=== PATIENT | male | born 2000 | race African-American/Black ===

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

== ENCOUNTER 2024-08-20 17:19 | Inpatient (IN) | payer BC, MEDICAID ==
[~2024-08-20] VITALS: Ht 182.9 cm; Wt 145.1 kg
[2024-08-20 18:01] LABS: BASOPHILS % 0.9 % (0.0-2.0); EOSINOPHILS % 1.4 % (0.0-5.0); HEMATOCRIT. 41.8 % (42.0-52.0); HEMOGLOBIN. 12.7 g/dL (14.0-18.0); LYMPHOCYTES % 52.1 % (20.0-50.0); MEAN CORPUSCULAR HEMOGLOBIN 19.2 pg (28.0-32.0); MEAN CORPUSCULAR HGB CONC 30.4 g/dL (31.0-37.0); MEAN PLATELET VOLUME 8.7 fl (7.4-10.4); MONOCYTES % 6.9 % (2.0-8.0); NEUTROPHILS % 38.7 % (40.0-76.0); PLATELET 398 x1000/uL (130-400); RED BLOOD CELL COUNT 6.63 mill/uL (4.7-6.1); RED CELL DISTRIBUTION WIDTH 17.7 % (11.6-14.6); WHITE BLOOD COUNT 8.7 x1000/uL (4.5-11.0)
[2024-08-20 18:03] LABS: ADD RBC MORPHOLOGY YES; DIFFERENTIAL COMMENT 1
[2024-08-20 18:07] LABS: CHLORIDE 104 mEq/L (98-107); POTASSIUM 4.3 mEq/L (3.5-5.1); SODIUM 138 mEq/L (136-145)
[2024-08-20 18:08] LABS: CALCIUM 8.8 mg/dL (8.7-10.4); CARBON DIOXIDE 28 mEq/L (21-32)
[2024-08-20 18:13] LABS: CREATININE 1.3 mg/dL (0.6-1.3); D-DIMER 0.92 mg/L FEU (<0.50); GLUCOSE 119 mg/dL (70-105); INR 1.4; PROTHROMBIN TIME 14.8 sec (9.6-11.0); TROPONIN I HIGH SENSITIVITY 19 ng/L (3.0-53); UREA NITROGEN BLOOD 14 mg/dL (9-23)
[2024-08-20 18:14] LABS: ALANINE AMINOTRANSFERASE 31 IU/L (10-49); ETHANOL BLOOD < 10 mg/dL (<10)
[2024-08-20 18:15] LABS: ALBUMIN 3.4 g/dL (3.2-4.8); ASPARTATE AMINOTRANSFERASE 31 IU/L (<34); BILIRUBIN DIRECT 0.6 mg/dL (<=3.0); BILIRUBIN TOTAL 1.4 mg/dL (0.1-1.0); PROTEIN TOTAL 5.5 g/dL (6.0-8.3)
[2024-08-20 19:11] LABS: ANISOCYTOSIS 1+; HYPOCHROMASIA 2+; MICROCYTOSIS 3+; PLATELET ESTIMATE NORMAL
[2024-08-20 19:12] LABS: OVALOCYTES 1+
[2024-08-20] MEDS: FUROSEMIDE 40MG/4ML VIAL IV NR (20:53)
[2024-08-20 23:14] LABS: TROPONIN I HIGH SENSITIVITY 22 ng/L (3.0-53)
[2024-08-20] MEDS: IOHEXOL-350 100 ML BOTTLE ONE (23:33)
[2024-08-21 03:29] LABS: CLARITY URINE CLEAR (CLEAR); COLOR URINE YELLOW (YELLOW); GLUCOSE URINE NEGATIVE (NEGATIVE); KETONES URINE NEGATIVE (NEGATIVE); LEUKOCYTE ESTERASE URINE NEGATIVE (NEGATIVE); NITRITE URINE NEGATIVE (NEGATIVE); OCCULT BLOOD URINE NEGATIVE (NEGATIVE); PROTEIN URINE NEGATIVE (NEGATIVE); SPECIFIC GRAVITY URINE 1.011 (1.005-1.030); UROBILINOGEN URINE 0.2 E.U./dL (0.2-1.0)
[2024-08-21 04:42] LABS: *AMPHETAMINES SCREEN URINE NEGATIVE (NEGATIVE); *BARBITURATES SCREEN URINE NEGATIVE (NEGATIVE); *BENZODIAZEPINES SCREEN URINE NEGATIVE (NEGATIVE); *COCAINE SCREEN URINE NEGATIVE (NEGATIVE); CANNABINOID URINE SCREEN NEGATIVE (NEGATIVE); ECSTASY MDMA SCREEN URINE NEGATIVE (NEGATIVE); METHADONE URINE SCREEN NEGATIVE (NEGATIVE); OPIATES URINE SCREEN NEGATIVE (NEGATIVE); PHENCYCLIDINE URINE SCREEN NEGATIVE (NEGATIVE)
[2024-08-21 06:48] LABS: CHLORIDE 104 mEq/L (98-107); POTASSIUM 4.3 mEq/L (3.5-5.1); SODIUM 140 mEq/L (136-145)
[2024-08-21 06:52] LABS: CALCIUM 9.4 mg/dL (8.7-10.4); CARBON DIOXIDE 27 mEq/L (21-32)
[2024-08-21 06:57] LABS: ALANINE AMINOTRANSFERASE 26 IU/L (10-49); CREATININE 1.2 mg/dL (0.6-1.3); GLUCOSE 139 mg/dL (70-105); TRIGLYCERIDE 94 mg/dL (0-150); UREA NITROGEN BLOOD 12 mg/dL (9-23)
[2024-08-21 06:58] LABS: LDL CHOLESTEROL 60 mg/dL (5-100)
[2024-08-21 06:59] LABS: ALBUMIN 3.7 g/dL (3.2-4.8); ASPARTATE AMINOTRANSFERASE 35 IU/L (<34); BILIRUBIN TOTAL 1.9 mg/dL (0.1-1.0); CHOLESTEROL 99 mg/dL (<200); HDL CHOLESTEROL 31 mg/dL (>55); PROTEIN TOTAL 5.7 g/dL (6.0-8.3)
[2024-08-21 07:01] LABS: BASOPHILS % 1.2 % (0.0-2.0); EOSINOPHILS % 1.4 % (0.0-5.0); HEMOGLOBIN. 13.2 g/dL (14.0-18.0); LYMPHOCYTES % 55.3 % (20.0-50.0); MEAN CORPUSCULAR HEMOGLOBIN 18.8 pg (28.0-32.0); MEAN CORPUSCULAR HGB CONC 29.9 g/dL (31.0-37.0); MEAN CORPUSCULAR VOLUME 62.9 fL (80.0-94.0); MEAN PLATELET VOLUME 9.4 fl (7.4-10.4); MONOCYTES % 6.5 % (2.0-8.0); NEUTROPHILS % 35.6 % (40.0-76.0); PLATELET 425 x1000/uL (130-400); RED CELL DISTRIBUTION WIDTH 17.4 % (11.6-14.6)
[2024-08-21 07:43] LABS: DIFFERENTIAL COMMENT 1
[2024-08-21 07:44] LABS: ADD RBC MORPHOLOGY NO
[2024-08-21] MEDS ORDERED: DEXTROSE 50% WATER 50ML SYRINGE IV PRN (13:30)
[2024-08-21] MEDS ORDERED: ONDANSETRON HCL 4MG/2ML INJ IV PRN (13:30)
[2024-08-21] MEDS: FUROSEMIDE 40MG/4ML VIAL IVP SCH (14:12)
[2024-08-21] MEDS: BLOOD SUGAR DIAGNOSTIC STRIP TEST SCH (16:45)
[2024-08-21] MEDS: INSULIN LISPRO 100 UNITS/ML SUBCUT SCH (17:15)
[2024-08-22 00:23] VITALS: BP 126/82; PULSE 79; RESP 17; TEMP 37.0296
[2024-08-22 04:00] VITALS: BP 109/70; PULSE 114; RESP 20; TEMP 36.00288; O2SAT 100
[2024-08-22 08:00] VITALS: BP 111/77; PULSE 102; RESP 19; TEMP 36.16956; O2SAT 96
[2024-08-22 08:34] LABS: CHLORIDE 101 mEq/L (98-107); POTASSIUM 4.1 mEq/L (3.5-5.1); SODIUM 141 mEq/L (136-145)
[2024-08-22 08:35] LABS: CALCIUM 9.7 mg/dL (8.7-10.4); CARBON DIOXIDE 31 mEq/L (21-32)
[2024-08-22 08:40] LABS: CREATININE 1.3 mg/dL (0.6-1.3); GLUCOSE 143 mg/dL (70-105); UREA NITROGEN BLOOD 15 mg/dL (9-23)
[2024-08-22 12:00] VITALS: BP 106/79; PULSE 99; RESP 21; TEMP 36.44736; O2SAT 99
[2024-08-22] MEDS: METOLAZONE 2.5MG TABLET PO SCH (14:40)
[2024-08-22 16:00] VITALS: BP 104/62; PULSE 102; RESP 19; TEMP 36.72516; O2SAT 100
[2024-08-22] MEDS: ASPIRIN 81MG TABLET PO SCH (17:10)
[2024-08-22 20:00] VITALS: BP 111/75; PULSE 99; RESP 20; TEMP 36.6696; O2SAT 96
[2024-08-23] VITALS: BP 120/73; PULSE 109; RESP 18; TEMP 36.61404; O2SAT 95
[2024-08-23] MEDS: ACETAMINOPHEN 325MG TABLET PO PRN (01:47)
[2024-08-23 04:00] VITALS: BP 122/76; PULSE 97; RESP 19; TEMP 36.44736; O2SAT 96
[2024-08-23 08:00] VITALS: BP 116/75; PULSE 107; RESP 22; TEMP 36.44736; O2SAT 96
[2024-08-23] MEDS ORDERED: IODIXANOL 320MG/ML 100 ML BOTTLE IV ONE (08:14)
[2024-08-23] MEDS ORDERED: LIDOCAINE HCL 1% 20ML VIAL ONE (08:14)
[2024-08-23] MEDS ORDERED: HEPARIN 1000 UNITS/ML 10ML ONE (08:14)
[2024-08-23] MEDS ORDERED: VERAPAMIL HCL 2.5 MG/1 ML 2ML VIAL IV ONE (08:14)
[2024-08-23] MEDS ORDERED: MIDAZOLAM HCL 2 MG/2 ML VIAL ONE (08:52)
[2024-08-23] MEDS ORDERED: FENTANYL CITRATE/PF 50MCG/ML 2ML VIAL ONE (08:52)
[2024-08-23] MEDS ORDERED: DIPHENHYDRAMINE 50MG/ML VIAL ONE (08:52)
[2024-08-23] MEDS ORDERED: ACETAMINOPHEN 325MG TABLET PO PRN (10:30)
[2024-08-23] MEDS ORDERED: ATROPINE SULFATE 1MG/10ML SYR IV PRN (10:30)
[2024-08-23] MEDS ORDERED: FUROSEMIDE 40MG/4ML VIAL IVP SCH (13:00)
[2024-08-23] MEDS: METOPROLOL SUCCINATE 25MG ER TABLET PO SCH (13:08)
[2024-08-23 16:00] VITALS: BP 130/67; PULSE 90; RESP 19; TEMP 36.72516; O2SAT 99
[2024-08-23] MEDS: METOLAZONE 2.5MG TABLET PO NR (16:41)
[2024-08-23] MEDS: FUROSEMIDE 40MG/4ML VIAL IV SCH (16:59)
[2024-08-23 20:00] VITALS: BP 112/60; PULSE 110; RESP 20; TEMP 36.89184; O2SAT 99
[2024-08-23] MEDS: ZOLPIDEM TARTRATE 5MG TABLET PO PRN (20:58)
[2024-08-24] VITALS: BP 102/55; PULSE 98; RESP 20; TEMP 36.78072; O2SAT 99
[2024-08-24 04:00] VITALS: BP 110/60; PULSE 105; RESP 20; TEMP 36.44736; O2SAT 99
[2024-08-24 08:00] VITALS: BP 131/74; PULSE 105; RESP 16; TEMP 36.3918; O2SAT 95
[2024-08-24 11:22] LABS: BASOPHILS % 0.7 % (0.0-2.0); EOSINOPHILS % 2.8 % (0.0-5.0); HEMATOCRIT. 46.7 % (42.0-52.0); HEMOGLOBIN. 14.1 g/dL (14.0-18.0); LYMPHOCYTES % 54.1 % (20.0-50.0); MEAN CORPUSCULAR HEMOGLOBIN 18.9 pg (28.0-32.0); MEAN CORPUSCULAR HGB CONC 30.2 g/dL (31.0-37.0); MEAN CORPUSCULAR VOLUME 62.4 fL (80.0-94.0); MEAN PLATELET VOLUME 9.6 fl (7.4-10.4); MONOCYTES % 7.5 % (2.0-8.0); NEUTROPHILS % 34.9 % (40.0-76.0); PLATELET 463 x1000/uL (130-400); RED BLOOD CELL COUNT 7.48 mill/uL (4.7-6.1); RED CELL DISTRIBUTION WIDTH 17.4 % (11.6-14.6); WHITE BLOOD COUNT 6.7 x1000/uL (4.5-11.0)
[2024-08-24 11:25] LABS: ADD RBC MORPHOLOGY NO; DIFFERENTIAL COMMENT 1
[2024-08-24] MEDS ORDERED: FURO-151 MT (11:28)
[2024-08-24] MEDS ORDERED: SPIR25TA6 MT (11:28)
[2024-08-24] MEDS ORDERED: LOSA25TA26 MT (11:28)
[2024-08-24] MEDS ORDERED: CARV6.2548 MT (11:28)
[2024-08-24 11:35] LABS: CHLORIDE 95 mEq/L (98-107); POTASSIUM 3.6 mEq/L (3.5-5.1); SODIUM 134 mEq/L (136-145)
[2024-08-24 11:36] LABS: CALCIUM 9.8 mg/dL (8.7-10.4); CARBON DIOXIDE 32 mEq/L (21-32)
[2024-08-24 11:41] LABS: CREATININE 1.2 mg/dL (0.6-1.3); GLUCOSE 172 mg/dL (70-105); UREA NITROGEN BLOOD 14 mg/dL (9-23)
[2024-08-24 11:43] VITALS: BP 131/74; PULSE 105; TEMP 97.5; O2SAT 95
[2024-08-24 12:00] VITALS: BP 124/68; PULSE 111; RESP 19; TEMP 36.61404; O2SAT 99
[2024-08-24] MEDS: METOLAZONE 2.5MG TABLET PO SCH (13:08)
[2024-08-24] MEDS ORDERED: SPIRONOLACTONE 25MG TABLET PO SCH (14:45)
[2024-08-24] MEDS ORDERED: SACUBITRIL/VALSARTAN 24MG/26MG TABLET PO SCH (21:00)
== END 2024-08-24 14:00 | disposition home or self-care (01) | DRG 287 ==
LOC: ER 17:19 → EDBEDREQ 21:09 → EDBEDREQTM 21:09 → 5WST 23:55 → 7EST 08-21 23:30
PROVIDERS: ADMIT Internal Medicine; ATTEND Internal Medicine
PROC: 4A023N7 Measurement of Cardiac Sampling and Pressure, Left Heart, Percutaneous Approach (ICD-10-PCS; principal; 2024-08-23)
PROC: B211YZZ Fluoroscopy of Multiple Coronary Arteries using Other Contrast (ICD-10-PCS; 2024-08-23)
DX: I50.21 Acute systolic (congestive) heart failure (principal); F84.0 Autistic disorder; Z68.41 Body mass index [BMI] 40.0-44.9, adult; I25.10 Atherosclerotic heart disease of native coronary artery without angina pectoris; E66.9 Obesity, unspecified; K76.0 Fatty (change of) liver, not elsewhere classified; E11.9 Type 2 diabetes mellitus without complications
CPT/HCPCS: 36415; 71045; 71275; 74177; 80048; 80053; 80061; 80076; 80305; 80320; 81003; 82962; 83036; 83880; 84484; 85025; 85379; 93005; 93306; 93458; 99291; C1769; C1887; C1893; J1200; J1644; J1815; J1940; J2250; J3010; J3490; Q9967; G0480